=== PATIENT | male | born 1945 | race Caucasian/White ===

== ENCOUNTER → 2018-06-20 08:15 | Outpatient (CLI) | payer MEDICARE, OTHER, SELFPAY ==
[2018-06-20 10:25] LABS: AST(SGOT) 23 U/L (15-37); Alanine Aminotransfer ALT/SGPT 30 U/L (16-61); Albumin, Serum 3.5 g/dL (3.2-5.0); Alkaline Phosphatase 43 U/L (45-117); Bilirubin, Direct 0.25 mg/dL (0.00-0.30); Cholesterol 100 mg/dL (200); Globulin 3.5 g/dL (2.2-4.2); High Density Lipoprotein 42 mg/dL; Triglycerides 121 mg/dL; Very Low Density Lipoprotein 24 mg/dL (5-40)
== END ==
PROVIDERS: Family Provider Family Medicine; PCP Family Medicine; Visit Provider Internal Medicine Cardiovascular Disease
DX: E78.5 Hyperlipidemia, unspecified (principal)
CPT/HCPCS: 36415; 80061; 80076

== ENCOUNTER → 2018-08-19 09:07 | Outpatient (CLI) | payer MEDICARE, OTHER, SELFPAY ==
[2018-08-19 10:18] LABS: Absolute Lymphocyte Count 2.53 X10^3/ul (0.83-4.51); Basophil# 0.02 X10^3/uL; Basophil% 0.2 % (0-1); Eosinophil# 0.19 X10^3/uL; Eosinophils% 2.2 % (0-5); Hematocrit 50.2 % (40-54); Hemoglobin 16.2 g/dl (13.0-16.5); Lymphocyte # 2.53 X10^3/ul (4.0); Lymphocyte % 29.6 % (19-41); Mean Corp Hgb Conc 32.3 g/gl (32-36); Mean Corpuscular Hgb 31.2 pg (27.0-32.0); Mean Corpuscular Volume 96.5 fL (80-94); Mean Platelet Vol. 9.7 fl (6.2-12.0); Monocyte# 0.79 X10^3/uL; Monocyte% 9.3 % (0-10); Neutrophil # 4.99 X10^3/uL (2.7-7.7); Neutrophil % 58.5 % (47-70); Platelet Count 184 K/mm3 (150-450); RBC Distribution Width SD 45.7 fl (35.1-43.9); White Blood Count 8.5 K/mm3 (4.4-11.0)
[2018-08-19 10:20] LABS: POSITIVE COUNT NO; POSITIVE DIFFERENTIAL NO; POSITIVE MORPHOLOGY NO
[2018-08-19 10:44] LABS: Anion Gap 7 (5-15); BUN 16 mg/dL (7-18); BUN/Creat Ratio 15.1 RATIO (10-20); Calcium,Total 8.4 mg/dL (8.5-10.1); Chloride 101 mmol/L (98-107); Creatinine, Serum 1.06 mg/dL (0.70-1.30); EST Glomerular Filtration Rate 72 mL/min (>60); Est Glom Filt Rate - Afr Amer 88 mL/min (>60); Glucose 90 mg/dL (74-106); PSA,Total - Annual Screen 0.67 ng/mL (0.00-4.00); Potassium 3.8 mmol/L (3.5-5.1); Sodium Level 138 mmol/L (136-145)
== END ==
PROVIDERS: Family Provider Family Medicine; PCP Family Medicine; Referring Provider Family Medicine; Visit Provider Family Medicine
DX: Z00.00 Encounter for general adult medical examination without abnormal findings (principal); I25.9 Chronic ischemic heart disease, unspecified; I10 Essential (primary) hypertension; E78.00 Pure hypercholesterolemia, unspecified; Z12.5 Encounter for screening for malignant neoplasm of prostate
CPT/HCPCS: 36415; 80048; 84153; 85025; G0103

== ENCOUNTER → 2019-03-17 07:43 | Outpatient (CLI) | payer MEDICARE, OTHER, SELFPAY ==
[2018-05-13 15:39] VITALS: BMI 30.7
[2019-03-17 10:22] LABS: AST(SGOT) 24 U/L (15-37); Alanine Aminotransfer ALT/SGPT 36 U/L (16-61); Albumin, Serum 3.5 g/dL (3.2-5.0); Alkaline Phosphatase 47 U/L (45-117); Bilirubin, Direct 0.34 mg/dL (0.00-0.30); Cholesterol 117 mg/dL (200); Globulin 3.4 g/dL (2.2-4.2); High Density Lipoprotein 46 mg/dL; Protein, Total 6.9 g/dL (6.4-8.2); Triglycerides 126 mg/dL; Very Low Density Lipoprotein 25 mg/dL (5-40)
== END ==
PROVIDERS: Family Provider Family Medicine; PCP Family Medicine; Referring Provider Family Medicine; Visit Provider Family Medicine
DX: E78.00 Pure hypercholesterolemia, unspecified (principal)
CPT/HCPCS: 36415; 80061; 80076

== ENCOUNTER → 2019-08-10 07:47 | Outpatient (CLI) | payer MEDICARE, OTHER, SELFPAY ==
[2019-06-11 14:14] VITALS: BMI 30.9
[2019-08-10 10:42] LABS: Absolute Lymphocyte Count 2.51 X10^3/uL (0.83-4.51); Absolute Neutrophil Count 4.5 X10^3/uL (2.0-7.7); Basophil# 0.03 X10^3/uL; Basophil% 0.4 % (0-1); Eosinophil# 0.27 X10^3/uL; Eosinophils% 3.4 % (0-5); Hematocrit 49.4 % (40-54); Hemoglobin 15.8 g/dL (13.0-16.5); Lymphocyte # 2.51 X10^3/ul (4.0); Mean Corpuscular Volume 97.1 fL (80-94); Mean Platelet Vol. 9.7 fl (6.2-12.0); Monocyte# 0.51 X10^3/uL; Monocyte% 6.5 % (0-10); NRBC Flagged by Analyzer 0 % (0-5); Neutrophil % 57.3 % (47-70); Platelet Count 217 K/mm3 (150-450); RBC Distribution Width CV 12.9 % (11.6-14.6); RBC Distribution Width SD 46.2 fl (35.1-43.9); Red Blood Count 5.09 M/mm3 (4.6-6.2); White Blood Count 7.9 K/mm3 (4.4-11.0)
[2019-08-10 10:52] LABS: Color, Urine Yellow (Yellow); Glucose, Dipstick Normal (Normal); Ketone-Dipstick Negative (Negative); Leukocyte Esterase-Dipstick 25 /ul (Negative); Nitrite-Dipstick Negative (Negative); Occult Blood-Urine 25 /ul (Negative); Protein-Dipstick 30 mg/dl (Negative); Urine Bilirubin Dipstick Negative (Negative); Urine Clarity Sl. Cloudy (Clear); Urine Urobilinogen 1 mg/dl (Normal)
[2019-08-10 11:06] LABS: AST(SGOT) 19 U/L (15-37); Alanine Aminotransfer ALT/SGPT 30 U/L (16-61); Albumin, Serum 3.6 g/dL (3.2-5.0); Alkaline Phosphatase 54 U/L (45-117); Anion Gap 5 (5-15); BUN 21 mg/dL (7-18); BUN/Creat Ratio 20.6 RATIO (10-20); Calcium,Total 8.4 mg/dL (8.5-10.1); Chloride 103 mmol/L (98-107); Cholesterol 126 mg/dL (200); Creatinine, Serum 1.02 mg/dL (0.70-1.30); EST Glomerular Filtration Rate 75 mL/min (>60); Est Glom Filt Rate - Afr Amer 91 mL/min (>60); Globulin 3.6 g/dL (2.2-4.2); Glucose 91 mg/dL (74-106); High Density Lipoprotein 46 mg/dL; PSA,Total - Annual Screen 0.69 ng/mL (0.00-4.00); Potassium 3.7 mmol/L (3.5-5.1); Protein, Total 7.2 g/dL (6.4-8.2); Sodium Level 139 mmol/L (136-145); Triglycerides 138 mg/dL; Very Low Density Lipoprotein 28 mg/dL (5-40)
== END ==
PROVIDERS: Family Provider Family Medicine; PCP Family Medicine; Referring Provider Family Medicine; Visit Provider Family Medicine
DX: Z00.00 Encounter for general adult medical examination without abnormal findings (principal); E78.00 Pure hypercholesterolemia, unspecified; I25.9 Chronic ischemic heart disease, unspecified; I10 Essential (primary) hypertension; Z12.5 Encounter for screening for malignant neoplasm of prostate
CPT/HCPCS: 36415; 80053; 80061; 81002; 84153; 85025; G0103

== ENCOUNTER → 2020-03-11 07:32 | Outpatient (CLI) | payer MEDICARE, OTHER, SELFPAY ==
[2019-06-11 14:14] VITALS: BMI 30.9
[2020-03-11 08:20] LABS: AST(SGOT) 24 U/L (15-37); Alanine Aminotransfer ALT/SGPT 35 U/L (16-61); Albumin, Serum 3.6 g/dL (3.2-5.0); Alkaline Phosphatase 61 U/L (45-117); Bilirubin, Direct 0.32 mg/dL (0.00-0.30); Cholesterol 113 mg/dL (200); Globulin 3.5 g/dL (2.2-4.2); High Density Lipoprotein 47 mg/dL; Protein, Total 7.1 g/dL (6.4-8.2); Triglycerides 101 mg/dL; Very Low Density Lipoprotein 20 mg/dL (5-40)
== END ==
PROVIDERS: PCP Family Medicine; Referring Provider Family Medicine; Visit Provider Family Medicine
DX: E78.00 Pure hypercholesterolemia, unspecified (principal)
CPT/HCPCS: 36415; 80061; 80076

== ENCOUNTER → 2020-08-26 07:21 | Outpatient (CLI) | payer MEDICARE, OTHER, SELFPAY ==
[2020-05-19 14:44] VITALS: BMI 30.3
[2020-08-26 08:49] LABS: Absolute Lymphocyte Count 2.88 X10^3/uL (0.83-4.51); Absolute Neutrophil Count 4.4 X10^3/uL (2.0-7.7); Basophil# 0.05 X10^3/uL; Basophil% 0.6 % (0-1); Eosinophil# 0.24 X10^3/uL; Eosinophils% 2.9 % (0-5); Hematocrit 51.7 % (40-54); Hemoglobin 16.3 g/dL (13.0-16.5); Lymphocyte # 2.88 X10^3/ul (4.0); Lymphocyte % 35.1 % (19-41); Mean Corp Hgb Conc 31.5 g/dL (32-36); Mean Corpuscular Hgb 30.5 pg (27.0-32.0); Mean Corpuscular Volume 96.6 fL (80-94); Mean Platelet Vol. 9.6 fl (6.2-12.0); Monocyte# 0.65 X10^3/uL; Monocyte% 7.9 % (0-10); NRBC Flagged by Analyzer 0 % (0-5); Neutrophil # 4.36 X10^3/uL (2.7-7.7); Neutrophil % 53.3 % (47-70); Platelet Count 211 K/mm3 (150-450); RBC Distribution Width CV 12.3 % (11.6-14.6); RBC Distribution Width SD 44.1 fl (35.1-43.9); Red Blood Count 5.35 M/mm3 (4.6-6.2); White Blood Count 8.2 K/mm3 (4.4-11.0)
[2020-08-26 09:12] LABS: AST(SGOT) 22 U/L (15-37); Alanine Aminotransfer ALT/SGPT 35 U/L (16-61); Albumin, Serum 3.6 g/dL (3.2-5.0); Alkaline Phosphatase 60 U/L (45-117); Anion Gap 6 (5-15); BUN 16 mg/dL (7-18); BUN/Creat Ratio 15.1 RATIO (10-20); Calcium,Total 8.5 mg/dL (8.5-10.1); Chloride 105 mmol/L (98-107); Cholesterol 115 mg/dL (200); Creatinine, Serum 1.06 mg/dL (0.70-1.30); EST Glomerular Filtration Rate 72 mL/min (>60); Est Glom Filt Rate - Afr Amer 87 mL/min (>60); Globulin 3.6 g/dL (2.2-4.2); Glucose 98 mg/dL (74-106); High Density Lipoprotein 49 mg/dL; PSA,Total - Annual Screen 0.82 ng/mL (0.00-4.00); Potassium 3.4 mmol/L (3.5-5.1); Protein, Total 7.2 g/dL (6.4-8.2); Sodium Level 139 mmol/L (136-145); Triglycerides 135 mg/dL; Very Low Density Lipoprotein 27 mg/dL (5-40)
== END ==
PROVIDERS: PCP Family Medicine; Visit Provider Family Medicine
DX: Z00.00 Encounter for general adult medical examination without abnormal findings (principal); E78.00 Pure hypercholesterolemia, unspecified; I25.9 Chronic ischemic heart disease, unspecified; I10 Essential (primary) hypertension; Z12.5 Encounter for screening for malignant neoplasm of prostate
CPT/HCPCS: 36415; 80053; 80061; 84153; 85025; G0103

== ENCOUNTER → 2020-10-18 10:25 | Outpatient (CLI) | payer MEDICARE, OTHER, SELFPAY ==
[2020-05-19 14:44] VITALS: BMI 30.3
== END ==
PROVIDERS: PCP Family Medicine; Referring Provider Family Medicine; Visit Provider Family Medicine
DX: A09 Infectious gastroenteritis and colitis, unspecified (principal)
CPT/HCPCS: 82274; 87177; 87209; 87493; 87506

== ENCOUNTER → 2022-03-02 | Outpatient (CLI) | payer MEDICARE, OTHER, SELFPAY ==
[2022-03-02 07:49] LABS: Absolute Lymphocyte Count 2.64 X10^3/uL (0.83-4.51); Absolute Neutrophil Count 3.7 X10^3/uL (2.0-7.7); Basophil# 0.05 X10^3/uL; Basophil% 0.7 % (0-1); Eosinophil# 0.29 X10^3/uL; Eosinophils% 3.9 % (0-5); Hematocrit 48.7 % (40-54); Hemoglobin 15.7 g/dL (13.0-16.5); Lymphocyte # 2.64 X10^3/ul (0.83-4.51); Lymphocyte % 35.6 % (19-41); Mean Corp Hgb Conc 32.2 g/dL (32-36); Mean Corpuscular Hgb 31.7 pg (27.0-32.0); Mean Corpuscular Volume 98.4 fL (80-94); Mean Platelet Vol. 9.6 fl (6.2-12.0); Monocyte# 0.67 X10^3/uL; NRBC Flagged by Analyzer 0 % (0-5); Neutrophil # 3.73 X10^3/uL (2.7-7.7); Neutrophil % 50.4 % (47-70); Platelet Count 210 K/mm3 (150-450); RBC Distribution Width CV 12.4 % (11.6-14.6); RBC Distribution Width SD 44.9 fl (35.1-43.9); Red Blood Count 4.95 M/mm3 (4.6-6.2); White Blood Count 7.4 K/mm3 (4.4-11.0)
[2022-03-02 08:10] LABS: Albumin, Serum 3.5 g/dL (3.2-5.0); BUN 23 mg/dL (7-18); BUN/Creat Ratio 19.3 RATIO (10-20); Creatinine, Serum 1.19 mg/dL (0.70-1.30); EST Glomerular Filtration Rate 63 mL/min (>60); Est Glom Filt Rate - Afr Amer 76 mL/min (>60); Glucose 111 mg/dL (74-106)
[2022-03-02 08:11] LABS: AST(SGOT) 31 U/L (15-37); Alanine Aminotransfer ALT/SGPT 41 U/L (16-61); Alkaline Phosphatase 48 U/L (45-117); Anion Gap 6 (5-15); Calcium,Total 8.5 mg/dL (8.5-10.1); Chloride 103 mmol/L (98-107); Cholesterol 111 mg/dL (200); Globulin 3.5 g/dL (2.2-4.2); High Density Lipoprotein 45 mg/dL; PSA,Total - Annual Screen 0.67 ng/mL (0.00-4.00); Potassium 3.7 mmol/L (3.5-5.1); Sodium Level 138 mmol/L (136-145); Triglycerides 107 mg/dL; Very Low Density Lipoprotein 21 mg/dL (5-40)
== END | disposition home or self-care (01) ==
LOC: LAB 07:05
PROVIDERS: PCP Family Medicine; Referring Provider Family Medicine; Visit Provider Family Medicine
DX: Z00.00 Encounter for general adult medical examination without abnormal findings (principal); E78.00 Pure hypercholesterolemia, unspecified; I10 Essential (primary) hypertension; Z12.5 Encounter for screening for malignant neoplasm of prostate
CPT/HCPCS: 36415; 80053; 80061; 84153; 85025; G0103

== ENCOUNTER → 2022-05-23 | Outpatient (CLI) | payer MEDICARE, OTHER, SELFPAY ==
--- NOTE | 2022-05-23 09:26 | STRESSREP ---
Stress Test Report Date: 05-23-2022 Procedure: Pharmacologic stress nuclear imaging study Indications: CAD; PCI; hyperlipidemia; hypertension; history of polio Consent: Per the patient Procedure: The patient underwent pharmacologic (Regadenoson 0.4mg ) evaluation with a peak heart rate of 72 beats per minute (51%predicted maximal heart rate) and a peak blood pressure of 162/82 mmHg. The baseline ECG demonstrated sinus bradycardia. The peak pharmacologic ECG demonstrated no obvious ECG changes. [There were no cardiac dysrhythmias pretest, during pharmacologic infusion, or recovery]. [There was no complaint of chest discomfort during pharmacologic infusion or recovery]. The examination was discontinued secondary to completion of protocol. Impression: 1. Pharmacologic (Regadenoson) evaluation 2. Peak pharmacologic ECG with no obvious ECG changes. 3. [There were no cardiac dysrhythmias pretest, during pharmacologic infusion, or recovery]. 4. Nuclear images pending Myocardial perfusion imaging study: Technique: The patient was injected with 14.2 millicuries of technetium 99m Cardiolite and subsequently rest SPECT Cardiolite nuclear imaging was obtained in the horizontal long, vertical long, and short axis views. The patient underwent pharmacologic (Regadenoson) evaluation with a peak heart rate of 72 beats per minute (51% percent predicted maximal heart rate) and a peak blood pressure of 162/82 mmHg. The patient was injected with 44.1 millicuries of technetium 99m Cardiolite and subsequently stress SPECT Cardiolite nuclear imaging was obtained in the horizontal long, vertical long, and short axis views. A gated Cardiolite study at peak stress was obtained. Interpretation: Rest and stress SPECT Cardiolite nuclear imaging status post realignment, normalization, and attenuation correction demonstrate following stress the appearance of an area of diminished myocardial perfusion/tracer uptake in the distal anterior/anteroseptal segments. [There is end systolic thickening and brightening]. [The gated Cardiolite study demonstrates myocardial thickening and inward wall motion]. The reported LVEF is 64%. Impression: 1. Rest and stress SPECT Cardiolite nuclear imaging demonstrate myocardial perfusion changes concerning for an area of stress-induced myocardial ischemia involving the distal anterior/anteroseptal segments. 2. The gated Cardiolite study reports an LVEF of 64%. This note was generated with [employer] software. It may contain incorrect words, spelling, and punctuation that were not noted in checking the note before signing.
== END | disposition home or self-care (01) ==
PROVIDERS: PCP Family Medicine; Referring Provider Internal Medicine Cardiovascular Disease; Visit Provider Internal Medicine Cardiovascular Disease
DX: I25.10 Atherosclerotic heart disease of native coronary artery without angina pectoris (principal); Z95.5 Presence of coronary angioplasty implant and graft
CPT/HCPCS: 78452; 93017; A9500; A4216; J2785

== ENCOUNTER → 2022-05-31 | Outpatient (CLI) | payer MEDICARE, OTHER, SELFPAY ==
--- NOTE | 2022-05-31 11:51 | ECHOD_ITS ---
Reason For Study: CAD/ASHD Procedure This was a 2D Doppler, Color Flow transthoracic echocardiogram. The exam was of adequate technical quality. Exam performed in department. Left Ventricle Normal LV size. Left ventricular systolic function is normal. The estimated ejection fraction is 60 %. Diastolic function is indeterminate. No regional wall motion abnormalities noted. Right Ventricle Normal RV size. Normal systolic function. Atria Normal left atrium. Normal right atrium. No doppler evidence for ASD. Mitral Valve There is no mitral annular calcification. Normal mitral valve. Mild (1+) eccentric mitral valve insufficiency. Tricuspid Valve Normal tricuspid valve. Mild tricuspid valve insufficiency. Right ventricular systolic pressure estimated to be 27 mmHg. Aortic Valve Trisinus/trileaflet aortic valve. Normal aortic valve. Mild (1+) aortic valve insufficiency. Pulmonic Valve The pulmonic valve is not well visualized. Trivial pulmonic valve insufficiency. Great Vessels Normal sized aortic root. Pericardium/Pleural No pericardial effusion. MMode/2D Measurements & Calculations LVIDd: 4.8 cm IVSd: 1.1 cm Ao root diam: 3.4 cm LVIDs: 3.0 cm LVPWd: 0.91 cm RVDd: 4.6 cm FS: 37.5 % LAV(MOD-bp): 56.7 ml LVAd ap4: 28.4 cm2 SV(MOD-sp4): 48.7 ml LAV(MOD-bp) Indexed: 28.0 ml/m2 LVLd ap4: 8.1 cm LAV(MOD-sp2): 56.9 ml EDV(MOD-sp4): 81.5 ml LAV(MOD-sp4): 54.8 ml EDV(sp4-el): 84.5 ml LVAs ap4: 16.1 cm2 LVLs ap4: 6.8 cm ESV(MOD-sp4): 32.9 ml ESV(sp4-el): 32.2 ml EF(MOD-sp4): 59.7 % EF(sp4-el): 61.9 % SV(sp4-el): 52.3 ml LA A4 area: 19.6 cm2 LA dimension(2D): 4.1 cm RA A4 area: 12.5 cm2 Doppler Measurements & Calculations MV E max haroldo: 48.8 cm/sec Lat Peak E' Haroldo: 9.5 cm/sec Med Peak E' Haroldo: 5.6 cm/sec MV A max haroldo: 70.5 cm/sec E/E' lat: 5.2 E/E' med: 8.6 MV E/A: 0.69 Ao V2 max: 129.0 cm/sec AI max haroldo: 265.7 cm/sec LV V1 max: 99.5 cm/sec Ao max P.7 mmHg AI max P.2 mmHg LV V1 max P.0 mmHg Ao V2 mean: 85.6 cm/sec Ao mean P.3 mmHg AI dec slope: 122.2 cm/sec2 Ao V2 VTI: 27.4 cm AI P1/2t: 636.9 msec PA V2 max: 93.9 cm/sec TR max haroldo: 245.0 cm/sec TR max P.0 mmHg ECHO/Echo Complete Interpretation Summary Left ventricular systolic function is normal. The estimated ejection fraction is 60 %. Mild (1+) eccentric mitral valve insufficiency. Mild tricuspid valve insufficiency. Mild (1+) aortic valve insufficiency. Trivial pulmonic valve insufficiency. Right ventricular systolic pressure estimated to be 27 mmHg. Diastolic function is indeterminate. Ordering Physician: Zeb Delacruz Referring Physician: Willy Fish Performed By: Katja Chirinos, JAMSHID, RVT
== END | disposition home or self-care (01) ==
LOC: CVS 11:50
PROVIDERS: PCP Family Medicine; Referring Provider Internal Medicine Cardiovascular Disease; Visit Provider Internal Medicine Cardiovascular Disease
DX: I25.10 Atherosclerotic heart disease of native coronary artery without angina pectoris (principal); I10 Essential (primary) hypertension; E78.5 Hyperlipidemia, unspecified; Z95.5 Presence of coronary angioplasty implant and graft
CPT/HCPCS: 93306

== ENCOUNTER 2022-06-04 16:57 | Observation (INO) | payer MEDICARE, OTHER, SELFPAY ==
--- NOTE | 2022-05-28 13:27 | RAD_ITS ---
STUDY: X-RAY CHEST REASON FOR EXAM: Male, 77 years old. Preop for heart catheterization TECHNIQUE: PA and lateral views of the chest. COMPARISON: 07/13/2016 FINDINGS: Lungs are mildly hyperexpanded with chronic interstitial changes, no superimposed acute pulmonary process. Normal size heart. Normal mediastinum and chao. Normal visualized pulmonary arteries. Normal visualized aortic arch and descending thoracic aorta. There are diffuse degenerative changes of the visualized thoracic spine. Normal visualized ribs, clavicles, and shoulders. There is no demonstrated abnormality of the visualized soft tissue structures of the upper abdomen. RAD/Chest PA and Lateral IMPRESSION: Mildly hyperexpanded lungs without a superimposed acute pulmonary process Electronically Signed: Alfonso Lr MD at 9:04 EDT ,
[2022-05-28 13:42] LABS: Hematocrit 46.8 % (40-54); Hemoglobin 15.9 g/dL (13.0-16.5); Mean Corpuscular Hgb 32.4 pg (27.0-32.0); Mean Corpuscular Volume 95.5 fL (80-94); Mean Platelet Vol. 9.3 fl (6.2-12.0); Platelet Count 199 K/mm3 (150-450); RBC Distribution Width SD 46.3 fl (35.1-43.9); White Blood Count 8.7 K/mm3 (4.4-11.0)
[2022-05-28 14:01] LABS: International Normalized Ratio 1.1; Partial Thromboplast Time 31.4 Seconds (24.1-36.2); Prothrombin Time (Protime)PT. 13.7 SECONDS (11.7-14.9)
[2022-05-28 14:02] LABS: Anion Gap 4 (5-15); BUN 20 mg/dL (7-18); BUN/Creat Ratio 16.5 RATIO (10-20); Calcium,Total 9.1 mg/dL (8.5-10.1); Chloride 103 mmol/L (98-107); Creatinine, Serum 1.21 mg/dL (0.70-1.30); EST Glomerular Filtration Rate 62 mL/min (>60); Est Glom Filt Rate - Afr Amer 74 mL/min (>60); Glucose 105 mg/dL (74-106); Potassium 3.7 mmol/L (3.5-5.1); Sodium Level 138 mmol/L (136-145)
--- NOTE | 2022-06-01 13:36 | HP.PCM_ITS ---
History and Physical Date of Admission: 06/04/22 [facility] [address] [place], [place] [address] OFFICE VISIT Date of Service:? 05/15/22 MR#: [id number] Acct: [id number] Name:? CLIFTON COLUNGA ROYAL Rep #: [id number] : 1945 ?Provider: Dr. Zeb Delacruz MD Age/Sex:? 77/M Location: [facility] Status: Signed HPI HPI History of Present Illness Details: This is a 77-year-old white male who presents today for outpatient cardiovascular follow-up of his history of underlying CAD status post PCI superimposed on hyperlipidemia and hypertension.? His last visit approximately 1 year ago he states overall he is done well with respect and no obvious acute symptoms.? He states he does not walk as much as he used to anymore even was playing golf.? He states walking can be somewhat challenging for him because of a history of polio and its effect on his left lower extremity. He denies classic angina pectoris at his level of activity.? There is been no evidence of CHF or pulmonary edema.? There has been no near-syncope or syncope. He did have lipid performed on 03-02-2022.? His total cholesterol was 111 with an LDL of 45 and an HDL of 45.? His triglycerides were 107. His previous cardiac catheterization and PCI performed at [facility] was in February 2011.? His last exercise tolerance test was performed in 2012. He states he is actually been thinking about having a follow-up exercise tolerance test to reassess his status as to whether there are any concerns that require additional evaluation and care. Intake Vital Signs ? 05/15/2214:57 05/15/2215:00 Height 5 ft 8 in 5 ft 8 in Weight: ? 195 lb 4 oz BMI 30.4 29.7 BP ? 122/68 H Blood Pressure Location ? Lt brachial Position ? Sitting Respiration ? 16 Pulse ? 64 Pulse Source ? Auscultation Intake Visit Reasons:?1 y fu Broach Grinder Required: No Accompanied by: Self Allergies No Known Allergies Allergy (Verified 05/15/22 15:00) Medications losartan 100 mg-hydrochlorothiazide 25 mg tablet 1 ea PO DAILY 07/07/16 [History Confirmed 05/15/22] metoprolol tartrate 100 mg tablet 100 mg PO DAILY 07/07/16 [History Confirmed 05/15/22] multivitamin 1 tab PO DAILY 07/07/16 [History Confirmed 05/15/22] sertraline 25 mg tablet 25 mg PO DAILY 07/07/16 [History Confirmed 05/15/22] simvastatin 40 mg tablet 40 mg PO DAILY 07/07/16 [History Confirmed 05/15/22] aspirin 81 mg chewable tablet 81 mg PO QDAY 05/13/18 [History Confirmed 05/15/22] coenzyme Q10 200 mg capsule (Co Q-10) 200 mg PO QDAY 05/13/18 [History Confirmed 05/15/22] PFSH Medical History? Atherosclerosis of coronary artery of [place] heart without angina pectoris Essential hypertension HLD (hyperlipidemia) Presence of stent in coronary artery (~03/19/11) Surgical History? Hx of colonoscopy Hx of hernia repair Presence of coronary angioplasty implant and graft (~03/19/11) Family History? Father Cancer ?? ? prostateBrother Cancer ?? ? prostate Social History? Smoking Status:? Former smoker how long ago did patient quit smoking:? 34 years ago alcohol intake:? current alcohol intake frequency: 0-2 drinks per day Alcohol ty pe: beer, wine and hard liquor substance use type:? does not use caffeine:? Yes Type: coffee Number of servings: 1 ROS Const Const: Negative for fatigue, weakness, body ache, fever(s), headache(s), chills, frequent falls, night sweats, daytime sleepiness, difficulty sleeping, excessive sweating, weight gain, weight loss, increased appetite, poor appetite, anorexia or other Eyes Eyes: Negative for blurry vision or double vision ENT ENT: Negative for headache(s), dizziness or balance problems Cardio Chest Pain: No Palpitations: No Edema: None Muscle aches with walking: None Resp Respiratory: Negative for SOB with activity, SOB at rest, SOB orthopnea\SOB lying down, Cough, Coughing up blood/hemoptysis, chest congestion, pain on inspiration, snoring, stridor, wheezing, crackles, paroxysmal nocturnal dyspnea or other Musc Musc: Negative for muscle aches/ myalgia, muscle weakness, joint pain or balance problems Neuro Neuro: Negative for dizziness, lightheadedness, near syncope, syncope, orthostatic symptoms, frequent falls, headache(s), weakness, confusion, memory loss, restless legs, blurry vision, double vision, vertigo, seizures, lack of coordination or other Endo Endo: Negative for fatigue or excessive sweating Cardiology Exam Const Appearance: cooperative, healthy appearing, comfortable, no acute distress, well developed and well groomed Nutritional Appearance: overweight Orientation: alert, awake and oriented x3 Head Head: normal to inspection, normocephalic and atraumatic Ears: hearing grossly normal bilaterally Nose: external nose normal Face and Sinus: face symmetric Eyes Eyelids: eyelids normal Conjunctivae: conjunctivae normal Pupils: PERRL EOM: EOM intact bilaterally Neck Neck: normal visual inspection and full ROM Carotids: normal carotid upstroke Chest Chest inspection: normal inspection of the chest, symmetric chest movement and normal respiratory effort Auscultation: Bilateral: Clear to Auscultation Cardio Rate: regular rate Rhythm: regular rhythm Heart sounds: S1 normal and S2 normal GI GI: normal to inspection, soft and bowel sounds present Neuro General: patient alert, patient awake, patient oriented x3 and moves all extremities Skin Skin: no rashes or lesions noted Extremities Pulses: Normal: Right Radial Pulse and Left Radial Pulse Lower Extremity Edema: None: Bilateral Psych Psychological: normal affect Supplemental Info Supplemental Information Labs: ?? ? LDL Cholesterol 45 mg/dL (0-130) ?? ? HDL Cholesterol 45 mg/dL (40-) ?? ? Triglycerides 107 mg/dL (-199) ?? ? VLDL Cholesterol 21 mg/dL (5-40) Diagnostics: ?? ? Electrocardiogram ? Chest X-Ray ? Pulmonary: ?? ? No Data to Display Assessment and Plan Assessment and Plan (1) Atherosclerosis of coronary artery of [place] heart without angina pectoris: ?Status:?Chronic ?Qualifiers: ?Coronary Disease-Associated Artery/Lesion type:?[place] artery? Qualified Code(s):?I25.10 - Atherosclerotic heart disease of [place] coronary artery without angina pectoris ?Plan: He appears to be doing well at this time. He will continue respect modification medical therapy. (2) Presence of stent in coronary artery: ?Status:?Chronic ?Comment: PTCA/GRAYSON to 1st diag, mid LAD, and prox LCX 03/19/11 ?Plan: His revascularization history was reviewed with him. At the present time it would not be unreasonable noting the distance he has from the time of his original PCI procedures and his last stress test to consider reassessing his overall cardiac status with a follow-up stress test.? If he cannot physically do this because of a history of polio then this can be done pharmacologically. If it is unremarkable then he will continue his routine follow-up.? If there are concerns he will need to consider undergoing further evaluation with diagnostic cardiac catheterization. (3) HLD (hyperlipidemia): ?Status:?Chronic ?Qualifiers: ?Hyperlipidemia type:?unspecified? Qualified Code(s):?E78.5 - Hyperlipidemia, unspecified ?Plan: His lipid labs appear to be stable at this time.? He will continue his current medical therapy and follow-up. (4) Essential hypertension: ?Status:?Chronic ?Plan: His blood pressure appears to be reasonably well controlled. He will continue medical therapy. ? ? ? Orders: Orders Nuclear Stress Test - Chemical Today Z95.5 - Presence of coronary angioplasty implant and graft ? Plan Details Additional Comments: Thank you for allowing me to participate in the care of your patient.? Please don't hesitate to call if any issues arise. This note was generated using a voice recognition system and there may be incorrect words, spelling or punctuation that were not noted when reviewing the office note prior to saving. Follow Up: ? ? 1 Year (with PFM ) COVID (Procedure Consent) Procedure Criteria Procedure Criteria: Yes Elective The surgeon/proceduralist and patient have discussed in detail the risk of exposure to and/or potential harm posed by the COVID-19 virus with having a surgery/procedure at this time versus the risk of? delaying the surge ry/procedure. It is not possible to know either the risk of delaying the surgery or procedure or chance of getting an infection with perfect accuracy, but a joint decision was made between the patient and the surgeon/proceduralist ?to proceed at this time with the scheduled surgery/procedure as indicated on the consent form. Coding Level of Care Code Off vis,est,level 4 Diagnoses Atherosclerosis of coronary artery of [place] heart without angina pectoris? I25.10 ? ? ? Coronary Disease-Associated Artery/Lesion type: [place] artery Presence of stent in coronary artery? Z95.5 HLD (hyperlipidemia)? E78.5 ? ? ? Hyperlipidemia type: unspecified Essential hypertension? I10 Coding Level of Care Code Off vis,est,level 4 Diagnoses Atherosclerosis of coronary artery of [place] heart without angina pectoris? I25.10 ? ? ? Coronary Disease-Associated Artery/Lesion type: [place] artery Presence of stent in coronary artery? Z95.5 HLD (hyperlipidemia)? E78.5 ? ? ? Hyperlipidemia type: unspecified Essential hypertension? I10 05/15/22 1546 <Electronically signed by Zeb Delacruz MD> Date Zeb Delacruz MD Cosigner Signature: Date (if applicable) CC:? Dr. Willy Fish MD ~ Assessment & Plan Addt'l Comments The patient has undergone additional evaluation with both a transthoracic echocardiogram and systolic tolerance test/nuclear imaging study. The results are noted below. Transthoracic echocardiogram: 05-31-2022 Interpretation Summary Left ventricular systolic function is normal. The estimated ejection fraction is 60 %. Mild (1+) eccentric mitral valve insufficiency. Mild tricuspid valve insufficiency. Mild (1+) aortic valve insufficiency. Trivial pulmonic valve insufficiency. Right ventricular systolic pressure estimated to be 27 mmHg. Diastolic function is indeterminate. Stress Test Report Date: 05-23-2022 Procedure: Pharmacologic stress nuclear imaging study? Indications: CAD; PCI; hyperlipidemia; hypertension; history of polio Consent: Per the patient Procedure: The patient underwent pharmacologic (Regadenoson 0.4mg ) evaluation with a peak heart rate of 72 beats per minute (51%predicted maximal heart rate) and a peak blood pressure of 162/82 mmHg. The baseline ECG demonstrated sinus bradycardia.? The peak pharmacologic ECG de monstrated no obvious ECG changes. [There were no cardiac dysrhythmias pretest, during pharmacologic infusion, or recovery]. [There was no complaint of chest discomfort during pharmacologic infusion or recovery]. The examination was discontinued secondary to completion of protocol. Impression: 1.? Pharmacologic (Regadenoson) evaluation 2.? Peak pharmacologic ECG with no obvious ECG changes. 3. [There were no cardiac dysrhythmias pretest, during pharmacologic infusion, or recovery]. 4.? Nuclear images pending Myocardial perfusion imaging study: Technique: The patient was injected with 14.2 millicuries of technetium 99m Cardiolite and subsequently rest SPECT Cardiolite nuclear imaging was obtained in the horizontal long, vertical long, and short axis views. The patient underwent phar macologic (Regadenoson) evaluation with a peak heart rate of 72 beats per minute (51% percent predicted maximal heart rate) and a peak blood pressure of 162/82 mmHg. The patient was injected with 44.1 millicuries of technetium 99m Cardiolite and subsequently stress SPECT Cardiolite nuclear imaging was obtained in the horizontal long, vertical long, and short axis views.? A gated Cardiolite study at peak stress was obtained. Interpretation: Rest and stress SPECT Cardiolite nuclear imaging status post realignment, normalization, and attenuation correction demonstrate following stress the appea pedro luis of an area of diminished myocardial perfusion/tracer uptake in the distal anterior/anteroseptal segments. [There is end systolic thickening and brightening]. [The gated Cardiolite study demonstrates myocardial thickening and inward wall motion].? The reported LVEF is 64%. Impression: 1.? Rest and stress SPECT Cardiolite nuclear imaging demonstrate myocardial perfusion changes concerning for an area of stress-induced myocardial ischemia involving the distal anterior/anteroseptal segments. 2.? The gated Cardiolite study reports an LVEF of 64%. Based upon the patient's clinical condition and aforementioned objective findings it was felt reasonable to patient be further evaluated in the cardiac catheterization laboratory. Due to the risk of been discussed with the patient. He is agreeable to this approach. I have re-examined the patient. There are no clinical changes since date of exam
[2022-06-03 10:07] VITALS: BMI 29.6
[2022-06-04] VITALS (13 sets, daily range): BP systolic 110–153; BP diastolic 59–94; PULSE 49–57; RESP 18–20; TEMP 36.3–36.6; O2SAT 95–99
--- NOTE | 2022-06-04 11:57 | CL.D_ITS ---
Patient Name: CLIFTON COLUNGA Study Date: 06/04/2022 Performing: Zeb Delacruz MD Ht: 68.11 inches 173 cm : 1945 Wt: 194.01 lbs 88 kg Age: 77 Gender: male BSA: 2.02 PROCEDURE(S) PERFORMED DC01-([id number])LHC/COR/LV CLINICAL PROFILE AND INDICATIONS Indications: Worsening Angina, Suspected CAD Heart Failure: None Stress/Imaging Date: 05/23/2022tress Test with SPECT MPI: Positive Intermediate Risk Angina Classification Anginal Classification w/in 2 Weeks: CCS II CAD Presentations: Other: worsening angina CONCLUSIONS Elevated Left Ventricular End Diastolic Pressure Normal LV size, wall motion,and systolic function LVEF: by LV gram 60 % [place] Multivessel CAD RECOMMENDATIONS Risk factor modification Medical therapy Referred for immediate PCI Case discussed / reviewed with Dr. Strong of Interventional Cardiology DESCRIPTION OF PROCEDURE The patient arrived to the procedure lab. The risks and benefits of the procedure as well as a full d escription of our services here and current unavailability of surgical backup were fully explained to the patient and/or their significant other prior to the catheterization. The Timeout was completed, verifying the correct patient and procedure. The patient's procedural site was prepped and draped in the usual fashion. Local anesthetic was given subcutaneously to right radial region with Lidocaine 2% . Local anesthetic was given subcutaneously to right groin region with Lidocaine 2%. Using a modified Seldinger technique, arterial access was obtained via the right radial artery, a 6Fr sheath was inse rted., arterial access was obtained via the right femoral artery, a 4Fr sheath was inserted Left Cor onary Artery selective angiography was performed in multiple views using a 4 Fr. JL5 catheter. Right Coronary Artery selective angiography was then performed in multiple views using a 4 Fr. 3DRC catheter. Left Ventriculography was performed in AVILA projection using a 4 Fr. Pigtail catheter. Left Ventriculography was performed in AVILA projection using a 4 Fr. Pigtail catheter. LV to AO pullba ck pressures were then recorded. CORONARY ANGIOGRAPHY DOMINANCE: Right Dominant LEFT HEART ASSESSMENT Left Ventricular Ejection Fraction: by LV Gram 60 % Normal LV wall motion Elevated Left Ventricular End Diastolic Pressure LVEDP: 30 mmHg Normal Left Ventricular systolic function LEFT MAIN: Mild luminal irregularities LEFT ANTERIOR DESCENDING ARTERY: PROX LAD: Mild luminal irregularities MID LAD: Previously placed stent is patent DIAGONAL 1: Proximal - Previously placed stent is patent CIRCUMFLEX ARTERY: PROX CIRC: Previously placed stent is patent MID CIRC: to distal: arising from the previous stented area with 95 % Stenosis (small to moderate siz ed vessel) RIGHT CORONARY ARTERY: large, dominant vessel, diffusely ectatic, no angiographically significant mack earing stenosis AORTIC ROOT: Angiographically normal COMPLICATIONS No Complications PROCEDURE MEDICATIONS Versed 1 mg IV Fentanyl 50 mcg IV Baby Aspirin (81mg) 1 Tabs PO 06/04/2022 08:45:47 Brilinta 180 mg PO @ 06/04/2022 11:29:03 Heparin given IA 06/04/2022 10:54:56 Verapamil 2.5mg, Ntg 100mcgs, 3000 units of Heparin given IA 06/04/2022 10:54:56 SUMMARY OF HEMODYNAMIC DATA Time AIR REST ECG 08:55:11 ECG 10:36:03 Art 179/77 (113) 10:52:13 AO 137/80 (103) SA 10:56:36 LV 166/6, 32 11:18:26 LV 164/5, 30 11:18:35 LV 167/7, 36 11:19:23 LV 172/7, 33 11:19:32 LVp 169/5, 31 11:19:39 AOp 170/74 (111) 11:19:46 Signed By Zeb Delacruz MD On 06/04/2022 12:25:52 Signed By Zeb Delacruz MD On 06/04/2022 11:57:00 Zeb Delacruz MD
[2022-06-04] MEDS: 0.9% Normal Saline 1,000 ML 75 ML IV (17:31)
[2022-06-04] MEDS: Atorvastatin Calcium 40 MG Tablet PO (21:06)
[2022-06-05 02:59] VITALS: PULSE 47
[2022-06-05 04:14] VITALS: BP 123/71; PULSE 52; RESP 18; TEMP 36.6; O2SAT 98
[2022-06-05] MEDS: 0.9% Normal Saline 1,000 ML 75 ML IV (06:03)
[2022-06-05 06:27] LABS: Absolute Lymphocyte Count 2.16 X10^3/uL (0.83-4.51); Absolute Neutrophil Count 6.2 X10^3/uL (2.0-7.7); Basophil# 0.03 X10^3/uL; Basophil% 0.3 % (0-1); Eosinophil# 0.16 X10^3/uL; Eosinophils% 1.7 % (0-5); Hematocrit 44.7 % (40-54); Hemoglobin 14.6 g/dL (13.0-16.5); Lymphocyte # 2.16 X10^3/ul (0.83-4.51); Mean Corp Hgb Conc 32.7 g/dL (32-36); Mean Corpuscular Hgb 31.5 pg (27.0-32.0); Mean Corpuscular Volume 96.3 fL (80-94); Monocyte# 0.77 X10^3/uL; Monocyte% 8.2 % (0-10); NRBC Flagged by Analyzer 0 % (0-5); Neutrophil # 6.23 X10^3/uL (2.7-7.7); Neutrophil % 66.4 % (47-70); Platelet Count 179 K/mm3 (150-450); RBC Distribution Width CV 13.3 % (11.6-14.6); RBC Distribution Width SD 47.6 fl (35.1-43.9); Red Blood Count 4.64 M/mm3 (4.6-6.2); White Blood Count 9.4 K/mm3 (4.4-11.0)
[2022-06-05 07:01] VITALS: PULSE 50
[2022-06-05 07:12] LABS: Anion Gap 6 (5-15); BUN 13 mg/dL (7-18); Calcium,Total 8.1 mg/dL (8.5-10.1); Chloride 105 mmol/L (98-107); EST Glomerular Filtration Rate 77 mL/min (>60); Est Glom Filt Rate - Afr Amer 93 mL/min (>60); Estimated Creatinine Clearance 57.95 ml/min; Glucose 97 mg/dL (74-106); Potassium 3.6 mmol/L (3.5-5.1); Sodium Level 140 mmol/L (136-145)
[2022-06-05 07:22] VITALS: O2SAT 92
[2022-06-05 08:15] LABS: International Normalized Ratio 1.2; Prothrombin Time (Protime)PT. 14.4 SECONDS (11.7-14.9)
[2022-06-05 08:16] LABS: Partial Thromboplast Time 31.3 Seconds (24.1-36.2)
--- NOTE | 2022-06-05 08:23 | PCM.DC ---
Discharge Instructions Diet Discharge Diet: Low fat / Low cholesterol Activity Discharge Activity: May Not Drive (x 48 hours), May Shower (Today) and May Take a Tub Bath (in 7 Days) May resume sexual activity in: 1-2 weeks Weight Bearing Status: - (avoid heavy exertional activity x 7 days then resume normal activity as tolerated) Dressing / Incision Call your doctor if your incision/area has: Continuous Slow Oozing, Sudden Increased Bleeding, Increased Pain/ Swelling, Increased Redness, Foul Smelling Discharge and Swelling at the incision site Call your doctor if you observe: Fever of 101 or Higher, Shortness of breath, Fainting spells, Swelling in the ankles, Chest pain, Increased palpitations (irregular heartbeat), Calf discomfort and Uncontrolled pain Remove Dressing in: 1 day Cleanse incision/area with: Soap & Water Follow Up Care Please Follow Up With: Zeb Delacurz MD When: [facility] to arrange a follow up visit Test Results: Test results from this visit will be discussed in further detail at your follow-up appointment, if applicable. Discharge Plan Admission Admit Date/Time: 06/04/22 16:57 Primary Reason for Your Visit: Abnormal Stress Test; Cardiac Catheterization Attending Provider: Zeb Delacruz Primary Care Provider: Willy Fish Discharge Orders/Prescriptions Prescriptions: Continued coenzyme Q10 [Co Q-10] 200 mg capsule 200 mg PO QDAY aspirin 81 mg tablet,chewable 81 mg PO QDAY metoprolol tartrate 100 MG tablet 100 mg PO DAILY Label Comments: blood pressure/Heart rate simvastatin 40 MG tablet 40 mg PO DAILY Label Comments: cholesterol losartan-hydrochlorothiazide 1 EACH tablet 1 ea PO DAILY Label Comments: blood pressure sertraline 25 MG tablet 25 mg PO DAILY Label Comments: depression multivitamin 1 EACH tablet 1 tab PO DAILY Label Comments: vitamin isosorbide mononitrate 30 mg tablet extended release 24 hr 30 mg PO DAILY Qty: 30 12RF Referrals / Follow Up: Willy Fish MD [Primary Care Provider] - Zeb Delacruz MD [Med Staff - Active Staff] - Disposition Disposition (needs filled in before D/C Order can be placed): Home, Self Care
--- NOTE | 2022-06-05 08:27 | DS.PCM_ITS ---
Providers Date of Admission: 06/04/22 Date of Discharge: 06/05/22 Primary Care Physician: Dr. Willy Fish MD Reason For Visit: ABN STRESS, CAD, STENT IN CORONARY ARTERY, HTN, HL Diagnosis Discharge Diagnosis (1) Atherosclerosis of coronary artery of [place] heart without angina pectoris: Status: Chronic Code(s): I25.10 - Atherosclerotic heart disease of [place] coronary artery without angina pectoris Qualifiers: Coronary Disease-Associated Artery/Lesion type: [place] artery Qualified Code(s): I25.10 - Atherosclerotic heart disease of [place] coronary artery without angina pectoris (2) Presence of stent in coronary artery: Status: Chronic Code(s): Z95.5 - Presence of coronary angioplasty implant and graft (3) HLD (hyperlipidemia): Status: Chronic Code(s): E78.5 - Hyperlipidemia, unspecified Qualifiers: Hyperlipidemia type: unspecified Qualified Code(s): E78.5 - Hyperlipidemia, unspecified (4) Essential hypertension: Status: Chronic Code(s): I10 - Essential (primary) hypertension (5) Abnormal stress test: Status: Acute Code(s): R94.39 - Abnormal result of other cardiovascular function study Medications at Discharge Home Medications losartan 100 mg-hydrochlorothiazide 25 mg tablet 1 ea PO DAILY 07/07/16 metoprolol tartrate 100 mg tablet 100 mg PO DAILY 07/07/16 multivitamin 1 tab PO DAILY 07/07/16 sertraline 25 mg tablet 25 mg PO DAILY 07/07/16 simvastatin 40 mg tablet 40 mg PO DAILY 07/07/16 aspirin 81 mg chewable tablet 81 mg PO QDAY 05/13/18 coenzyme Q10 200 mg capsule (Co Q-10) 200 mg PO QDAY 05/13/18 isosorbide mononitrate 30 mg tablet,extended release 24 hr 30 mg PO DAILY #30 tabs 06/04/22 Hospital Course Operations None Procedures Cardiac catheterization Summary of Care Provided Minutes Spent on Discharge: 45 Hospital Course: The patient presented to [facility] for concerns of an abnormal stress test for outpatient diagnostic cardiac catheterization. The cardiac catheterization procedure was performed. The patient was noted to have progressive LCx atherosclerotic coronary artery disease. The patient was referred for interventional cardiology evaluation. An attempt was made to approach the LCx lesion, however, as this area originated from a stented area it was unable to be accessed successfully secondary to stent [facility]itent[facility] . Thus it was elected to continue conservative medical management with the addition of nitrates with isosorbide mononitrate/Imdur 30 mg p.o. daily with the patient's other medications. Based upon the length of the procedure and the length of the post procedure recovery area it was elected to monitor the patient overnight with respect to his right inguinal area cardiac catheterization access site for any obvious adverse effects. On this day the patient was awake and alert with no concerning symptoms. He has cardiac catheterization site appeared to be stable. He appeared to be hemodynamically stable. It was felt he was stable for release home for continued outpatient follow-up. Physical Exam Const alert, oriented x3 and no apparent distress General Appearance: cooperative, comfortable, well kempt and well developed HEENT normocephalic, head/scalp atraumatic and hearing grossly normal bilaterally Eyes PERRL, EOMs intact bilaterally, conjunctivae normal and no scleral icterus Neck full ROM, supple and no JVD Chest Chest: symmetrical chest wall rise Resp normal respiratory effort and clear to auscultation bilaterally Cardio regular rate, regular rhythm, S1 normal heart sound and S2 normal heart sound GI normal to inspection, nondistended, normoactive bowel sounds, soft to palpation and non-tender Extremity no pedal edema Peripheral Pulses: Yes radial pulses present right 2+ and other (No bruit: No hematoma) and femoral pulses present right 2+ and other (No bruit: No hematoma) Skin no rashes or lesions noted Neuro oriented x3, moves all extremities, no focal motor deficits and no sensory deficits noted Psych mental status grossly normal Weight / BMI Weight Weight: 195 lb Body Mass Index (BMI) 29.6 ABG / Lab / Microbiology Data Result Diagrams: 06/05/22 05:22 06/05/22 05:22 Laboratory: Laboratory Results - last 24 hr 06/05/22 05:22: WBC 9.4, RBC 4.64, Hgb 14.6, Hct 44.7, MCV 96.3 H, MCH 31.5, MCHC 32.7, RDW Std Deviation 47.6 H, RDW Coeff of [place] 13.3, Plt Count 179, MPV 10.0, Immature Gran % (Auto) 0.400, Neut % (Auto) 66.4, Lymph % (Auto) 23.0, [place] % (Auto) 8.2, Eos % (Auto) 1.7, Baso % (Auto) 0.3, Absolute Neuts (auto) 6.2, Absolute Lymphs (auto) 2.16, Nucleated RBC % 0 06/05/22 05:22: PT Cancelled, INR Cancelled, APTT Cancelled 06/05/22 05:22: Sodium 140, Potassium 3.6, Chloride 105, Carbon Dioxide 29.0, Anion Gap 6, BUN 13, Creatinine 1.00, Estim Creat Clear Calc 57.95, Est GFR (MDRD) Af Amer 93, Est GFR (MDRD) Non-Af 77, BUN/Creatinine Ratio 13.0, Glucose 97, Calcium 8.1 L 06/05/22 07:35: PT 14.4, INR 1.2, APTT 31.3 D/C Instructions Discharge Diet: Low fat / Low cholesterol May resume sexual activity in: 1-2 weeks Weight Bearing Status: - (avoid heavy exertional activity x 7 days then resume normal activity as tolerated) Call your doctor if your incision/area has: Continuous Slow Oozing, Sudden Increased Bleeding, Increased Pain/ Swelling, Increased Redness, Foul Smelling Discharge and Swelling at the incision site Call your doctor if you observe: Fever of 101 or Higher, Shortness of breath, Fainting spells, Swelling in the ankles, Chest pain, Increased palpitations (irregular heartbeat), Calf discomfort and Uncontrolled pain Cleanse incision/area with: Soap & Water Please Follow Up With: Zeb Delacruz MD When: [facility] to arrange a follow up visit Meaningful Use Info Meaningful Use Diagnoses (Choose all that apply): None applicable Discharge Plan Admission Admit Date/Time: 06/04/22 16:57 Primary Reason for Your Visit: Abnormal Stress Test; Cardiac Catheterization Attending Provider: Zeb Delacruz Primary Care Provider: Willy Fish Discharge Orders/Prescriptions Prescriptions: Continued coenzyme Q10 [Co Q-10] 200 mg capsule 200 mg PO QDAY aspirin 81 mg tablet,chewable 81 mg PO QDAY metoprolol tartrate 100 MG tablet 100 mg PO DAILY Label Comments: blood pressure/Heart rate simvastatin 40 MG tablet 40 mg PO DAILY Label Comments: cholesterol losartan-hydrochlorothiazide 1 EACH tablet 1 ea PO DAILY Label Comments: blood pressure sertraline 25 MG tablet 25 mg PO DAILY Label Comments: depression multivitamin 1 EACH tablet 1 tab PO DAILY Label Comments: vitamin isosorbide mononitrate 30 mg tablet extended release 24 hr 30 mg PO DAILY Qty: 30 12RF Referrals / Follow Up: Zeb Delacruz MD [Med Staff - Active Staff] - Willy Fish MD [Primary Care Provider] - Disposition Disposition (needs filled in before D/C Order can be placed): Home, Self Care
[2022-06-05 08:28] VITALS: PULSE 52
[2022-06-05] MEDS: Losartan Potassium 100 MG Tablet PO (08:29)
[2022-06-05] MEDS: Isosorbide Mononitrate 30 MG Tablet PO (08:29)
[2022-06-05] MEDS: hydroCHLOROthiazide 25 MG Tablet PO (08:29)
[2022-06-05] MEDS: Aspirin 81 MG TAB.CHEW PO (08:29)
[2022-06-05] MEDS: Sertraline 50 MG Tablet 25 MG PO (08:29)
--- NOTE | 2022-06-05 09:29 | PHA.DC.MR ---
Pharmacy Service has performed discharge medication reconciliation for this patient. The patient's discharge medication list was reviewed for discrepancies and discrepancies were resolved. Home Medications losartan 100 mg-hydrochlorothiazide 25 mg tablet 1 ea PO DAILY 07/07/16 metoprolol tartrate 100 mg tablet 100 mg PO DAILY 07/07/16 multivitamin 1 tab PO DAILY 07/07/16 sertraline 25 mg tablet 25 mg PO DAILY 07/07/16 simvastatin 40 mg tablet 40 mg PO DAILY 07/07/16 aspirin 81 mg chewable tablet 81 mg PO QDAY 05/13/18 coenzyme Q10 200 mg capsule (Co Q-10) 200 mg PO QDAY 05/13/18 isosorbide mononitrate 30 mg tablet,extended release 24 hr 30 mg PO DAILY #30 tabs 06/04/22
[2022-06-05 10:15] VITALS: BP 123/53; PULSE 53; RESP 18; TEMP 36.3; O2SAT 97
--- NOTE | 2022-07-01 11:35 | PCIREPORT_ITS ---
PCI Cardiac Cath Report PCI Report: 1. Attempted PCI of mid circumflex artery 95% stenosis (small to moderate size vessel), unable to cross the lesion due to jailed by proximal circumflex stent Pre and post stenosis remains similar 95%. 2. Pre and post MARYANN-3 flow. Consent; Risk and benefit of the procedure explained in detail patient like to proceed informed consent obtained. Preprocedure diagnosis; 77-year-old patient seen and evaluated by his primary mash preparatory operator Dr. Delacruz Underwent cardiac catheterization Angiographic views and films reviewed and discussed with Dr. Delacruz LV ejection fraction by left ventricular gram 60% with normal LV wall motion. And normal LV systolic function Left main coronary artery has mild luminal irregularity Left anterior descending artery proximal LAD had mild luminal irregularity, mid LAD previously placed stent is patent First diagonal branch proximal previously placed stent is patent Circumflex artery proximal circumflex previously placed stent is patent mid circumflex to distal arising from the previous stented area with 95% stenosis a small to moderate size vessel. Interventional equipment used; Access from the right radial artery 1. 3.56 [place] EBU guide catheter 2. 0.014 BMW universal straight 190 cm 3. 0.014 choice floppy wire 182 cm 4.0.014 run-through extra floppy 180 cm straight guidewire Procedure in detail; Under fluoroscopic guidance we will proceed with 6 [place] EBU guide catheter advanced sending aorta cannulated the left main without difficulty AVILA caudal views obtained, attempted to cross the lesion from the proximal segment of the circumflex was not successful due to previously placed stent which jailed the vessel Patient remained stable clinically does not have any symptoms of chest pain there were no change in the EKG or hemodynamic At this point all catheter removed and decision was made to treat the patient with medical therapy due to high risk with jailed proximal stent to the sidebranch. No complication in the Transportation Project Manager Recommendations; 1. Medical therapy/antianginal medications 2. Patient to follow-up with the primary mash preparatory operator Dr. Delacruz for continuation of cardiac care. Juan M Strong MD,[facility]
== END 2022-06-05 08:32 | disposition home or self-care (01) ==
LOC: CLSP 17:03 → PCU 17:03
PROVIDERS: Admitting Provider Internal Medicine Cardiovascular Disease; PCP Family Medicine; Referring Provider Internal Medicine Cardiovascular Disease; Visit Provider Internal Medicine Cardiovascular Disease
DX: I25.119 Atherosclerotic heart disease of native coronary artery with unspecified angina pectoris (principal); I10 Essential (primary) hypertension; R94.39 Abnormal result of other cardiovascular function study; E78.5 Hyperlipidemia, unspecified; Z87.891 Personal history of nicotine dependence; Z86.12 Personal history of poliomyelitis; Z79.899 Other long term (current) drug therapy; Z79.82 Long term (current) use of aspirin; Z95.5 Presence of coronary angioplasty implant and graft; Z53.09 Procedure and treatment not carried out because of other contraindication; I08.3 Combined rheumatic disorders of mitral, aortic and tricuspid valves; R00.1 Bradycardia, unspecified
CPT/HCPCS: 36415; 71046; 80048; 85025; 85027; 85610; 85730; 92928; 93458; 96360; 96361; 99152; 99153; 99218; J7030; J7040; A4216; C1725; C1760; C1769; C1887; C1894; C9600; G0378; Q9967

== ENCOUNTER → 2022-06-06 | Outpatient (CLI) | payer MEDICARE, OTHER, SELFPAY ==
--- NOTE | 2022-06-06 11:21 | ADUUE_ITS ---
Reason For Study: Right arm cath site red, warm and leaking RIGHT Radial artery, prox, 0.35 x 0.32 cm, 51.1 cm/sec. Radial artery, mid, 0.32 x 0.32 cm, 36.3 cm/sec. Radial artery distal, 0.32 x 0.31 cm, 38.4 cm/sec. Ulnar artery, distal, 0.17 x 0.18 cm, 59.1 cm/sec. Radial, ulnar and cephalic veins are compressible No acute occlusion or pseudoaneurysm noted. Preliminary report to Donna [facility] voicemail. /US Art Duplex Unilat UP Extrem Interpretation Summary Proximal, mid, distal right radial artery appears to be of normal diameter and flow. Normal flow in diameter right ulnar artery Patent and compressible rate radial and ulnar veins Patent and compressible right cephalic vein No evidence for thrombosis or pseudoaneurysm. Ordering Physician: Zeb Delacruz Referring Physician: Willy Fish Performed By: Mely Larson RVT
== END | disposition home or self-care (01) ==
LOC: CVS 11:19
PROVIDERS: PCP Family Medicine; Referring Provider Internal Medicine Cardiovascular Disease; Visit Provider Internal Medicine Cardiovascular Disease
DX: R09.89 Other specified symptoms and signs involving the circulatory and respiratory systems (principal); S55.101A Unspecified injury of radial artery at forearm level, right arm, initial encounter
CPT/HCPCS: 93931